=== PATIENT | female | born 1980 | race Caucasian/White ===

== ENCOUNTER 2017-05-05 04:09 | Inpatient (IN) | payer OTHER ==
[2017-05-05] VITALS (56 sets, daily range): BP systolic 94–152; BP diastolic 44–75; PULSE 56–129; RESP 16–18; TEMP 98–99.5
[~2017-05-05] VITALS: Ht 180.3 cm; Wt 73.0 kg
[2017-05-05] MEDS ORDERED: LACTATED RINGER'S 1000 ML INJ 1,000 ML IV PRN (05:03)
[2017-05-05] MEDS ORDERED: OXYTOCIN 30 UNITS-500ML PREMIX 500 ML IV SCH ×2 (05:15→19:45)
[2017-05-05] MEDS ORDERED: LIDOCAINE HCL 1% 50 ML VIAL INFIL PRN (05:15)
[2017-05-05] MEDS ORDERED: MINERAL OIL 10 ML VIAL TOPICAL PRN (05:15)
[2017-05-05] MEDS ORDERED: LIDOCAINE HCL 1% 50 ML VIAL I-DERMAL PRN (05:15)
[2017-05-05] MEDS ORDERED: SODIUM CHLORID 0.9% 500 ML INJ 500 ML IV PRN (05:15)
[2017-05-05] MEDS ORDERED: CITRIC ACID-SODIUM CITRATE LIQ 30 ML UDC PO SCH (05:15)
[2017-05-05] MEDS ORDERED: OXYTOCIN 30 UNITS-500ML PREMIX 500 ML IV ONE (05:15)
--- NOTE | 2017-05-05 05:15 | HHI.HP ---
HPI Chief Complaint Water broke Date Seen: May 05, 2017 Time Seen: 05:00 Travel History International Travel<30 Days: No Contact w/Intl Traveler<30Days: No Known Affected Area: No History of Present Illness HPI This patient is a 36-year-old white female at [address] Rowley for care, she had her water break at 4:15 PM yesterday she waited at home 12 hours and since labor did not start she came in, no bleeding noted, baby active, heart rate tracing is reactive, she is not markus. Her amnio sure is positive this morning Weeks Gestation: 40 Para: 1 : 2 Last Menstrual Period: May 05, 2017 History Obstetric History Obstetric History One vaginal delivery 15 years ago Social History Alcohol Use: No Tobacco Use: No Substance Abuse: No Allergies-Medications (Allergen,Severity, Reaction): Coded Allergies: penicillin G (Unverified Allergy, Mild, JUAN, 01/13/17) Review of Systems General / Constitutional: No: Fever, Weight Gain, Chills, Other Eyes: No: Diploplia, Blurred Vision, Visual changes, Pain, Photophobia HENT: No: Headaches, Vertigo, Lightheadedness Cardiovascular: No: Irregular Rhythm, Chest Pain or Discomfort, Palpitations, Tachycardia, Syncope, Varicosities, Edema, Cyanosis Respiratory: No: Cough, Short of Breath, Other Gastrointestinal: No: Nausea, Vomiting, Diarrhea Genitourinary: No: Decreased Urinary Output, Oliguria Musculoskeletal: No: Limited ROM, Weakness, Cramping, Edema, Pain Skin: No Rash, No Itching, No Dryness, No Lumps, No Change in Pigmentation, No Change in Nails, No Alopecia, No Lesions Neurologic: No: Weakness, Dizziness, Syncope, Focal Abnormalities, Coordination Problem, Headache, Slurred Speech, Seizures Psychiatric: No: Depression, Suicidal Ideations, Homicidal Ideation Endocrine: No: Heat Intolerance, Cold Intolerance, Polydipsia, Polyuria, Other Physical Exam Narrative GENERAL: Well-nourished, well-developed patient. SKIN: Warm and dry. HEAD: Normocephalic and atraumatic. EYES: No scleral icterus. No injection or drainage. ENT: No nasal drainage noted. Mucous membranes pink. Airway patent. NECK: Supple, trachea midline. No JVD. CARDIOVASCULAR: Regular rate and rhythm without murmurs, gallops, or rubs. RESPIRATORY: Breath sounds equal bilaterally. No accessory muscle use. BREASTS: Bilateral exam showed no masses , no retractions, no nipple discharge. ABDOMEN/GI: Abdomen soft, non-tender, bowel sounds present, no rebound, no guarding Gravid to [-40] weeks size Fundal Height: [-40] GENITOURINARY: External Genitalia: intact and normal in appearance BUS glands: [-] Cervix: [-] Dilatation: [2-] Effacement: [50-] Station: [-3] Presentation: [vtx-] Membranes: + ruptured]amnisure pos Uterine Contractions: [none-] FHT's: Category: [1-] Baseline: [133-] Reactive: [-yes] Variability: [mod-] Decels: [0-] EXTREMITIES: No cyanosis or edema. BACK: Nontender without obvious deformity. No CVA tenderness. NEUROLOGICAL: Awake and alert. Motor and sensory grossly within normal limits. Five out of 5 muscle strength in all muscle groups. Normal speech. Caprini VTE Risk Assessment Caprini VTE Risk Assessment: No/Low Risk (score <= 1) Caprini Risk Assessment Model Point Value = 1 Point Value = 2 Point Value = 3 Point Value = 5 Age 41-60 Minor surgery BMI > 25 kg/m2 Swollen legs Varicose veins or History of unexplained or recurrent spontaneous Oral contraceptives or hormone replacement Sepsis (< 1 month) Serious lung disease, including pneumonia (< 1 month) Abnormal pulmonary function Acute myocardial infarction Congestive heart failure (< 1 month) History of inflammatory bowel disease Medical patient at bed rest Age 61-74 Arthroscopic surgery Major open surgery (> 45 min) Laparoscopic surgery (> 45 min) Malignancy Confined to bed (> 72 hours) Immobilizing plaster cast Central venous access Age >= 75 History of VTE Family history of VTE Factor V Leiden Prothrombin [id number] Lupus anticoagulant Anticardiolipin antibodies Elevated serum homocysteine Heparin-induced thrombocytopenia Other congenital or acquired thrombophilia Stroke (< 1 month) Elective arthroplasty Hip, pelvis, or leg fracture Acute spinal cord injury (< 1 month) Prophylaxis Regimen Total Risk Factor Score Risk Level Prophylaxis Regimen 0-1 Low Early ambulation 2 Moderate Order ONE of the following: *Sequential Compression Device (SCD) *Heparin 5000 units SQ BID 3-4 Higher Order ONE of the following medications: *Heparin 5000 units SQ TID *Enoxaparin/Lovenox 40 mg SQ daily (WT < 150 kg, CrCl > 30 mL/min) *Enoxaparin/Lovenox 30 mg SQ daily (WT < 150 kg, CrCl > 10-29 mL/min) *Enoxaparin/Lovenox 30 mg SQ BID (WT < 150 kg, CrCl > 30 mL/min) AND/OR *Sequential Compression Device (SCD) 5 or more Highest Order ONE of the following medications: *Heparin 5000 units SQ TID (Preferred with Epidurals) *Enoxaparin/Lovenox 40 mg SQ daily (WT < 150 kg, CrCl > 30 mL/min) *Enoxaparin/Lovenox 30 mg SQ daily (WT < 150 kg, CrCl > 10-29 mL/min) *Enoxaparin/Lovenox 30 mg SQ BID (WT < 150 kg, CrCl > 30 mL/min) AND *Sequential Compression Device (SCD) Data Data Orders Orders Ob (2e) Additional Admit Info (05/05/17 04:47) Admit To Inpatient (05/05/17 ) Vital Signs (Adult) .Per protocol (05/05/17 05:03) Heart (05/05/17 05:03) Amnioinfusion (05/05/17 05:03) Urinary Catheter Management .ONCE (05/05/17 05:03) Diet Liquid (05/05/17 Breakfast) Lactated Ringer's 1000 Ml Inj (Lr 1000 M (05/05/17 05:03) Lactated Ringer's 1000 Ml Inj (Lr 1000 M (05/05/17 05:03) Sodium Chlorid 0.9% 500 Ml Inj (Ns 500 M (05/05/17 05:15) Sodium Chlor 0.9% 1000 Ml Inj (Ns 1000 M (05/05/17 05:23) Lidocaine 1% Inj (50 Ml) (Xylocaine 1% I (05/05/17 05:15) Citric Acid-Sodium Citrate Liq (Bicitra (05/05/17 05:15) Fentanyl Inj (Fentanyl Inj) (05/05/17 05:15) Fentanyl Inj (Fentanyl Inj) (05/05/17 05:15) Complete Blood Count With Diff (05/05/17 05:03) Hold Clot (05/05/17 05:03) Abo/Rh Blood Type (05/05/17 05:03) Urinalysis - C+S If Indicated (05/05/17 05:03) Drug Screen, Random Urine (05/05/17 05:03) Resp Oxygen Non Rebreathe Mask (05/05/17 ) ^ Epidural / Intrathecal Infus (05/05/17 05:03) Oxytocin 30 Units-500ml Premix (Pitocin (05/05/17 05:15) Lidocaine 1% Inj (50 Ml) (Xylocaine 1% I (05/05/17 05:15) Light Mineral Oil (Muri-Lube Oil) (05/05/17 05:15) Specimen To Be Collected PRN (05/05/17 05:03) Specimen To Be Collected PRN (05/05/17 05:03) ^ Non Stress Test (05/05/17 05:05) Response To Medication .Post New Med Administration, Reaction (05/05/17 05:05) ^ Discontinue Medication (05/05/17 05:05) Oxytocin Drip (1-30) (05/05/17 05:15) Group B Strep: Negative Assessment/Plan Assessment and Plan Patient is 36-year-old white female at 40 weeks who presents with ruptured membranes for 12 hours, little to no contractions at this time. No bleeding noted. heart rate tracing is reactive and she is not markus on monitor. PLan-admit to the hospital plan to augment/induce her labor due to SROM at term , will discuss case with Dr. Rowley. Eliseo Mclean II, MD May 05, 2017 05:15
[2017-05-05] MEDS ORDERED: SODIUM CHLOR 0.9% 1000 ML INJ 1,000 ML IV PRN (05:23)
[2017-05-05 05:40] LABS: BLOOD, URINE NEG (NEG); COMMENT (UR) CULT NOT INDICATED; CULTURE IF INDICATED CULT NOT INDICATED; GLUCOSE,URINE NEG (NEG); KETONE, URINE NEG (NEG); MUCUS URINE FEW /lpf (OCC); NITRITE,URINE NEG (NEG); PH, URINE 6.5 (5.0-8.5); SQUAMOUS EPITHELIAL CELL URINE 4 /hpf (0-5); URINE COLOR LIGHT-YELLOW (YELLW/STRAW)
[2017-05-05] MEDS: LACTATED RINGER'S 1000 ML INJ 1,000 ML IV SCH (06:31)
[2017-05-05] MEDS ORDERED: PREN1TAB45 (06:33)
[2017-05-05] MEDS ORDERED: ZANT150T2 PO (06:34)
[2017-05-05 06:54] LABS: AUTOMATED NEUTROPHIL # 6.4 TH/MM3 (1.8-7.7); BASOPHIL % 0.4 % (0.0-2.0); EOSINOPHIL # 0.1 TH/MM3 (0-0.4); EOSINOPHIL % 1.4 % (0.0-4.0); HEMATOCRIT 36.7 % (35.0-46.0); HEMO FLAGS DIFF FINAL; LYMPH % 21.7 % (9.0-44.0); LYMPHOCYTE # 2.1 TH/MM3 (1.0-4.8); MEAN CELL VOLUME 86.8 FL (80.0-100.0); MEAN CORPUSCULAR HEMOGLOBIN 29.2 PG (27.0-34.0); MEAN CORPUSCULAR HGB CONC 33.7 % (32.0-36.0); MONO % 8.9 % (0.0-8.0); NEUT % 67.6 % (16.0-70.0); PLATELET COUNT 116 TH/MM3 (150-450); RED BLOOD COUNT 4.23 MIL/MM3 (4.00-5.30); RED CELL DISTRIBUTION WIDTH 14.1 % (11.6-17.2); WHITE BLOOD COUNT 9.5 TH/MM3 (4.0-11.0)
[2017-05-05] MEDS ORDERED: DIPHTH/TETANUS/ACEL PERTUSSIS (BOOSTER) 0.5 ML VIAL/PFS IM ONE (16:00)
[2017-05-05] MEDS ORDERED: MEASLES, MUMPS, RUBELLA VACCINE 0.5 ML VIAL SQ ONE (16:00)
[2017-05-05] MEDS ORDERED: ONDANSETRON HCL 4 MG/2 ML VIAL ONE (18:37)
[2017-05-05] MEDS ORDERED: fentaNYL 2MCG-BUPIV 0.125% INJ 100 ML ONE (18:47)
--- NOTE | 2017-05-05 19:43 | PD.OB.DELI ---
Weeks gestation: 40 Gest age assessed date: May 05, 2017 Gest age assessed time: 05:15 Active labor start date: May 05, 2017 Active labor start time: 05:15 Medical induction of labor?: No Artificial rupture of membrane: No Anesthesia: None Episiotomy: None Vaginal Delivery: Normal, Spontaneous Presentation: Occiput anterior Nuchal Cord: None Delayed cord clamping (45 sec): Yes Infant: Female, Single Delivery date: May 05, 2017 Delivery time: 19:16 One Minute : 9 Five Minute : 9 Placenta: Spontaneous delivery, Intact, 3 vessel cord Laceration: Vaginal laceration, 2 deg Repair: Chromic running Estimated blood loss: 300 David Bianchi MD May 05, 2017 19:43
[2017-05-05] MEDS ORDERED: ONDANSETRON ODT 4 MG TAB PO PRN (19:45)
[2017-05-05] MEDS ORDERED: oxyCODONE/ACETAMINOPHEN 5 MG/325 MG TAB PO PRN (19:45)
[2017-05-05] MEDS ORDERED: ACETAMINOPHEN 325 MG TAB PO PRN (19:45)
[2017-05-05] MEDS ORDERED: ALUMINUM/MAGNESIUM/SIMETH 30 ML CUP PO PRN (19:45)
[2017-05-05] MEDS ORDERED: ZOLPIDEM TARTRATE 5 MG TAB PO PRN (19:45)
[2017-05-05] MEDS ORDERED: SODIUM CHLORIDE 0.9% FLUSH 10 ML FLUSH IV FLUSH PRN (19:45)
[2017-05-05] MEDS: IBUPROFEN 800 MG TAB PO PRN (20:08)
[2017-05-05] MEDS: oxyCODONE/ACETAMINOPHEN 5 MG/325 MG TAB PO PRN (20:10)
[2017-05-06] MEDS: WITCH HAZEL 50%/GLYCERIN 12.5% 40 PAD JAR TOPICAL PRN (00:01)
[2017-05-06] MEDS: DOCUSATE SODIUM 50 MG/SENNA 8.6 MG TAB PO PRN ×2 (00:01→12:18)
[2017-05-06] MEDS: BENZOCAINE 20% TOPICAL SPRAY 60 ML CAN TOPICAL PRN (00:01)
[2017-05-06] MEDS: oxyCODONE/ACETAMINOPHEN 5 MG/325 MG TAB PO PRN ×4 (00:01→19:29)
[2017-05-06] MEDS ORDERED: AMMONIA AROMATIC INHALANT 0.33 ML ONE (03:01)
[2017-05-06] MEDS: IBUPROFEN 800 MG TAB PO PRN ×3 (04:18→19:29)
--- NOTE | 2017-05-06 07:20 | HHI.OB ---
Subjective Post Day: 1 Remarks doing well Objective Vitals/I&O Vital Signs Date Time Temp Pulse Resp B/P (MAP) Pulse Ox O2 Delivery O2 Flow Rate FiO2 05/05/17 21:56 64 106/57 (73) 05/05/17 21:49 63 18 96/59 (71) 05/05/17 21:00 16 05/05/17 20:45 67 104/57 (73) 05/05/17 20:42 99.5 05/05/17 20:42 18 05/05/17 20:30 68 105/58 (74) 05/05/17 20:15 68 109/62 (78) 05/05/17 20:00 65 108/59 (75) 05/05/17 19:56 18 05/05/17 19:46 68 105/54 (71) 05/05/17 19:45 18 05/05/17 19:44 74 107/44 (65) 05/05/17 18:00 99.2 18 05/05/17 17:59 62 103/44 (63) 05/05/17 17:55 59 05/05/17 17:50 65 05/05/17 17:45 62 05/05/17 17:10 66 05/05/17 17:05 69 05/05/17 17:00 129 05/05/17 16:55 69 05/05/17 16:50 72 05/05/17 16:45 87 05/05/17 16:15 18 05/05/17 16:12 57 114/75 (88) 05/05/17 16:10 59 05/05/17 16:05 64 05/05/17 16:00 59 05/05/17 15:55 62 05/05/17 15:50 69 05/05/17 15:45 70 05/05/17 15:00 98.1 05/05/17 13:55 18 05/05/17 12:45 98.1 18 05/05/17 12:42 63 114/68 (83) 05/05/17 12:40 69 05/05/17 12:35 64 05/05/17 12:30 61 05/05/17 11:11 98.1 18 05/05/17 11:10 113 05/05/17 11:05 115 05/05/17 11:03 61 152/61 (91) 05/05/17 11:00 113 05/05/17 10:00 18 05/05/17 09:30 18 05/05/17 09:00 18 05/05/17 08:45 98.0 05/05/17 08:45 18 05/05/17 08:40 60 05/05/17 08:38 59 94/49 (64) 05/05/17 08:35 57 05/05/17 08:30 57 Objective Remarks GENERAL: Well-nourished, well-developed patient. ABDOMEN/GI: Abdomen soft, non-tender. Fundus: Firm, non-tender at umbilicus. GENITOURINARY: Light to moderate bleeding. EXTREMITIES: No cyanosis or edema, non-tender, without signs of DVT. Medications and IVs Current Medications Medications (Trade) Dose Ordered Sig/Gavin Route Start Time Stop Time Status Last Admin Lactated Ringer's 1,000 ml @ 125 mls/hr Q8H IV 05/05/17 05:03 05/05/17 06:31 Lactated Ringer's 1,000 ml @ 3,000 mls/hr Q20M PRN IV 05/05/17 05:03 Sodium Chloride 500 ml @ 1,000 mls/hr ONCE PRN IV 05/05/17 05:15 05/12/17 05:14 Sodium Chloride 1,000 ml @ 100 mls/hr Q10H PRN IV 05/05/17 05:23 (Xylocaine 1% Inj (50 ml)) 0.1 ml UNSCH X1 PRN I-DERMAL 05/05/17 05:15 05/08/17 05:14 (Bicitra Liq) 30 ml HE[employer] EDUCATION TEACHER PO 05/05/17 05:15 05/09/17 05:14 (fentaNYL INJ) 50 mcg Q1H PRN IV PUSH 05/05/17 05:15 (fentaNYL INJ) 100 mcg Q1H PRN IV PUSH 05/05/17 05:15 (Xylocaine 1% Inj (50 ml)) 10 ml UNSCH X1 PRN INFIL 05/05/17 05:15 05/07/17 05:14 (Muri-Lube Oil) 10 ml UNSCH PRN TOPICAL 05/05/17 05:15 Oxytocin 500 ml @ 0 mls/hr TITRATE IV 05/05/17 05:15 05/05/17 06:30 (NS Flush) 2 ml BID IV FLUSH 05/05/17 21:00 (NS Flush) 2 ml UNSCH PRN IV FLUSH 05/05/17 19:45 (Tylenol) 650 mg Q4H PRN PO 05/05/17 19:45 (Motrin) 800 mg Q8H PRN PO 05/05/17 19:45 05/06/17 04:18 (Percocet 5-325 Mg) 1 tab Q4H PRN PO 05/05/17 19:45 05/06/17 04:18 (Percocet 5-325 Mg) 2 tab Q4H PRN PO 05/05/17 19:45 (Americaine 20% Top Spr) 1 spray Q4H PRN TOPICAL 05/05/17 19:45 05/06/17 00:01 (Tucks Pads) 1 applic QID PRN TOPICAL 05/05/17 19:45 05/06/17 00:01 (Niecy-Colace) 2 tab Q12H PRN PO 05/05/17 19:45 05/06/17 00:01 (Ambien) 5 mg HS PRN PO 05/05/17 19:45 (Mag-Al Plus Susp Liq) 15 ml Q8H PRN PO 05/05/17 19:45 (Zofran Odt) 4 mg Q6H PRN PO 05/05/17 19:45 05/05/17 18:50 Assessment/Plan Problem List: (1) Spontaneous vaginal delivery ICD Codes: O80 - Encounter for full-term uncomplicated delivery Assessment and Plan Patient is 36-year-old white female at 40 weeks who presents with ruptured membranes for 12 hours, little to no contractions at this time. No bleeding noted. heart rate tracing is reactive and she is not markus on monitor. PLan-admit to the hospital plan to augment/induce her labor due to SROM at term , will discuss case with Dr. Rowley. Arias,David Quevedo MD May 06, 2017 07:20
[2017-05-06] MEDS: SODIUM CHLORIDE 0.9% FLUSH 10 ML FLUSH IV FLUSH SCH (19:16)
[2017-05-06] MEDS: LACTATED RINGER'S 1000 ML INJ 1,000 ML IV SCH (19:17)
[2017-05-06 20:00] VITALS: BP 84/47; PULSE 61; RESP 16; TEMP 97.9
[2017-05-06 21:00] VITALS: BP 90/50
[2017-05-07] MEDS: IBUPROFEN 800 MG TAB PO PRN ×2 (05:41→11:28)
[2017-05-07] MEDS: oxyCODONE/ACETAMINOPHEN 5 MG/325 MG TAB PO PRN (05:41)
[2017-05-07] MEDS: DOCUSATE SODIUM 50 MG/SENNA 8.6 MG TAB PO PRN (05:41)
--- NOTE | 2017-05-07 07:49 | HHI.OB ---
Subjective Post Day: 2 Remarks doing well Objective Vitals/I&O Vital Signs Date Time Temp Pulse Resp B/P (MAP) Pulse Ox O2 Delivery O2 Flow Rate FiO2 05/06/17 21:00 90/50 (63) 05/06/17 20:00 61 84/47 (59) 05/06/17 20:00 97.9 16 Objective Remarks GENERAL: Well-nourished, well-developed patient. ABDOMEN/GI: Abdomen soft, non-tender. Fundus: Firm, non-tender at umbilicus. GENITOURINARY: Light to moderate bleeding. EXTREMITIES: No cyanosis or edema, non-tender, without signs of DVT. Medications and IVs Current Medications Medications (Trade) Dose Ordered Sig/Gavin Route Start Time Stop Time Status Last Admin Lactated Ringer's 1,000 ml @ 125 mls/hr Q8H IV 05/05/17 05:03 05/05/17 06:31 Lactated Ringer's 1,000 ml @ 3,000 mls/hr Q20M PRN IV 05/05/17 05:03 Sodium Chloride 500 ml @ 1,000 mls/hr ONCE PRN IV 05/05/17 05:15 05/12/17 05:14 Sodium Chloride 1,000 ml @ 100 mls/hr Q10H PRN IV 05/05/17 05:23 (Xylocaine 1% Inj (50 ml)) 0.1 ml UNSCH X1 PRN I-DERMAL 05/05/17 05:15 05/08/17 05:14 (Bicitra Liq) 30 ml [employer] TECHNICIAN PO 05/05/17 05:15 05/09/17 05:14 (fentaNYL INJ) 50 mcg Q1H PRN IV PUSH 05/05/17 05:15 (fentaNYL INJ) 100 mcg Q1H PRN IV PUSH 05/05/17 05:15 (Muri-Lube Oil) 10 ml UNSCH PRN TOPICAL 05/05/17 05:15 Oxytocin 500 ml @ 0 mls/hr TITRATE IV 05/05/17 05:15 05/05/17 06:30 (NS Flush) 2 ml BID IV FLUSH 05/05/17 21:00 (NS Flush) 2 ml UNSCH PRN IV FLUSH 05/05/17 19:45 (Tylenol) 650 mg Q4H PRN PO 05/05/17 19:45 (Motrin) 800 mg Q8H PRN PO 05/05/17 19:45 05/07/17 05:41 (Percocet 5-325 Mg) 1 tab Q4H PRN PO 05/05/17 19:45 05/07/17 05:41 (Percocet 5-325 Mg) 2 tab Q4H PRN PO 05/05/17 19:45 (Americaine 20% Top Spr) 1 spray Q4H PRN TOPICAL 05/05/17 19:45 05/06/17 00:01 (Tucks Pads) 1 applic QID PRN TOPICAL 05/05/17 19:45 05/06/17 00:01 (Niecy-Colace) 2 tab Q12H PRN PO 05/05/17 19:45 05/07/17 05:41 (Ambien) 5 mg HS PRN PO 05/05/17 19:45 (Mag-Al Plus Susp Liq) 15 ml Q8H PRN PO 05/05/17 19:45 (Zofran Odt) 4 mg Q6H PRN PO 05/05/17 19:45 05/05/17 18:50 Assessment/Plan Problem List: (1) Spontaneous vaginal delivery ICD Codes: O80 - Encounter for full-term uncomplicated delivery Assessment and Plan S/P doing well PLan [place] David Bianchi MD May 07, 2017 07:49
[2017-05-07] MEDS ORDERED: OXYC1TAB63 PO (07:52)
--- NOTE | 2017-05-07 07:52 | HHI.DCPOC ---
Discharge Care Plan Diagnosis: (1) Spontaneous vaginal delivery Report Symptoms to Your Doctor -Temperature above 100.5 degrees -Redness, of incision or excessive or foul smelling drainage -Unusual pain or calf pain -Increased vaginal bleeding -Painful or difficulty urinating -Feelings of extreme sadness or anxiety after 2 weeks Goals to Promote Your Health * To prevent worsening of your condition and complications * To maintain your health at the optimal level Directions to Meet Your Goals Take your medications as prescribed Follow your dietary instruction Follow activity as directed Ensure plenty of rest for recovery Drink fluids for hydration Keep your appointments as scheduled Take your immunizations and boosters as scheduled If your symptoms worsen call your PCP, if no PCP go to Urgent Care Center or Emergency Room Smoking is Dangerous to Your Health. Avoid second hand smoke Call the 24-hour crisis hotline for domestic abuse at David Bianchi MD May 07, 2017 07:52
--- NOTE | 2017-05-07 07:54 | HHI.DS ---
Admission Date May 05, 2017 at 04:48 Discharge Date: May 07, 2017 Admitting Diagnosis Diagnosis: (1) Spontaneous vaginal delivery ICD Codes: O80 - Encounter for full-term uncomplicated delivery Delivery Date: May 05, 2017 Vaginal Delivery: Normal : Female, Single Brief History This patient is a 36-year-old white female at [address] Rowley for care, she had her water break at 4:15 PM yesterday she waited at home 12 hours and since labor did not start she came in, no bleeding noted, baby active, heart rate tracing is reactive, she is not markus. Her amnio sure is positive this morning Hospital Course doing well pp. she is doing well Pt Condition on Discharge: Good Discharge Disposition: Discharge Home Discharge Instructions Diet Instructions: As Tolerated, No Restrictions Activities You Can Perform: Pelvic Rest Activities to Avoid: Driving for 24 hrs Follow up Referrals: [facility] - 2 Weeks @ [facility] with David Bianchi MD New Medications: Oxycodone HCl/Acetaminophen (Oxycodone-Acetaminophen 5-325) 5 Mg-325 Mg Tablet 1 TAB PO Q4H PRN for PAIN SCALE 3 TO 5, #20 TAB David Bianchi MD May 07, 2017 07:54
[2017-05-07 08:00] VITALS: BP 88/60; PULSE 66; RESP 16; TEMP 97.8
[2017-05-07] MEDS: WITCH HAZEL 50%/GLYCERIN 12.5% 40 PAD JAR TOPICAL PRN (08:15)
[2017-05-07] MEDS: BENZOCAINE 20% TOPICAL SPRAY 60 ML CAN TOPICAL PRN (08:15)
[2017-05-07] MEDS: SODIUM CHLORIDE 0.9% FLUSH 10 ML FLUSH IV FLUSH SCH (09:13)
[2017-05-07] MEDS: LACTATED RINGER'S 1000 ML INJ 1,000 ML IV SCH (13:46)
== END 2017-05-07 14:00 | disposition home or self-care (01) | DRG 775 ==
LOC: HOBED 04:09 → H2EB 04:48 → H1EA 22:30
PROVIDERS: ADMIT Obstetrics & Gynecology; ATTEND Obstetrics & Gynecology
PROC: 10E0XZZ Delivery of Products of Conception, External Approach (ICD-10-PCS; principal; 2017-05-05)
PROC: 0KQM0ZZ Repair Perineum Muscle, Open Approach (ICD-10-PCS; 2017-05-05)
DX: O71.4 Obstetric high vaginal laceration alone (principal); Z37.0 Single live birth; Z3A.40 40 weeks gestation of pregnancy
CPT/HCPCS: 80307; 81001; 84112; 85025; 86900; 86901; 90715; J2405; J2590; J7120